=== PATIENT | female | born 1935 | race Caucasian/White ===

== ENCOUNTER → 2020-07-15 11:27 | Outpatient (BNVA) | payer MEDICARE, OTHER, SELFPAY | PROVIDERS: Family Provider Family Medicine; PCP Family Medicine; Visit Provider Nurse Practitioner Family | DX: S89.81XA Other specified injuries of right lower leg, initial encounter (principal); X58.XXXA Exposure to other specified factors, initial encounter | CPT/HCPCS: 73590 ==

== ENCOUNTER 2022-01-05 10:53 | Emergency (ER) | payer MEDICARE, OTHER, SELFPAY ==
[2022-01-05 10:58] VITALS: PULSE 66; RESP 16; TEMP 36.3; O2SAT 95; BMI 22.1
--- NOTE | 2022-01-05 11:24 | ED_ITS ---
HPI - Eye Problem General: Chief complaint: Eye Problems Stated complaint: Dark spots in vision, Weakness Time Seen by Provider: 01/05/22 11:04 Source: patient Mode of arrival: ambulatory History of Present Illness: 86-year-old female who comes into the emergency room complaining of blurry vision. She has had blurred spots in her vision this is been ongoing for many months. She has had extensive evaluation at various specialists in [place]. She is on aspirin and Xarelto. She is not having any symptoms no difficulty speech swallowing hearing no difficulty with gait. She came into the emergency room hoping to have more testing done. She is frustrated and wants to get more of a definitive answer. She has been scheduled to see a neurologist but that is not until February 12 and she wants to be seen sooner. Not having any eye pain she denies any vision symptoms at this time. chief complaint: vision change (Intermittent not present now) Onset (ago): month(s) Duration: intermittent Location: both eyes Eye Symptoms: blurry vision Mechanism: none Severity: mild Associated symptoms: Denies cough, fever(s), headache(s), nausea, neck pain, numbness, rhinorrhea, short of breath, vomiting or weakness Treatments Prior to Arrival: none Review of Systems Const: Denies: fever(s) ENMT: Denies: throat pain, ear or mastoid pain, nasal discharge or nasal congestion Card: Denies: chest pain, edema, dyspnea on exertion or orthopnea Resp: Denies: dyspnea, productive cough or non-productive cough GI: Denies: nausea or vomiting : Denies: flank pain, difficulty voiding, dysuria, urinary frequency or urinary urgency Musc: Denies: neck pain Skin/Breast: Denies: rash or pruritus Neuro: Denies: headache(s) [facility] ED PFS: Medical History (Updated 01/05/22 @ 11:35 by Ry Torres DO) CHF (congestive heart failure) Cholecystectomy planned CKD (chronic kidney disease) Diabetes type 2, controlled Gout Insomnia Surgical History S/P aortic valve replacement S/P hysterectomy S/P shoulder surgery BILATERAL Family History Mother Cancer Father Family history of premature coronary artery disease Hypertension Mother CAD (coronary artery disease) Hypertension Social History Smoking and tobacco status: never smoked Second hand smoke exposure: No Smoking risk assessment/counseling performed?: No Alcohol intake: never Desire information about alcohol rehabilitation?: No Counseling given: No Desire information about substance/drug rehabilitation?: No Counseling given: No Adopted: No Caregiver/support person: No Lives independently: Yes Housing: House Marital status: / Number of children: 3 Highest education level completed: Associate Degree: Academic Program service: No Current occupational status: retired Current occupation: retired Current occupational exposures/hazards: No Pets and animals: Yes Pets & animals: dog(s) and farm animals Farm Animals: cattle History of recent travel: No Leisure activites: other Sexually active: No Current gender identity: Female Physical Exam Const: COMMON NORMALS: no acute distress GENERAL APPEARANCE: cooperative and comfortable ORIENTATION/CONSCIOUSNESS: Yes awake, Yes oriented to person, Yes oriented to place and Yes oriented to time HENMT: COMMON NORMALS: normocephalic and atraumatic HEAD & SCALP: norm ocephalic and atraumatic Neuro: SENSORIUM/ORIENTATION: Yes oriented to person, Yes oriented to place and Yes oriented to time Skin: COMMON NORMALS: no rashes or lesions noted GENERAL SKIN EXAM: no rashes or lesions noted Course Vital Signs: Vital signs: Vital Signs Temperature 97.3 F L 01/05/22 10:58 Pulse Rate 66 01/05/22 10:58 Respiratory Rate 16 01/05/22 10:58 Pulse Oximetry 95 01/05/22 10:58 Oxygen Delivery Me thod 01/05/22 10:58 MDM - Eye Problem Medical Decision Making Patient is having no symptoms at all at this time. She just wanted to have more testing done. Discussed with her that what she likely needs is an MRI of the head. She would better be served first by seeing neurology and then getting more imaging if they felt it was indicated. We will try to get her set up to see Dr. West. Otherwise I do strongly recommend she keep the appointment she has she may be able to get in sooner with the referral that she had from [place] compared to trying to get into Dr. West's office. Return if she has sudden or acute changes in her symptoms. Lab Data Laboratory Results C-Reactive Protein 3.0 mg/L (0.0-4.9) 01/05/22 11:45 Discharge Plan Discharge Patient Disposition: Home Clinical Impression: Visual disturbance, Chronic anticoagulation, Diabetes type 2, controlled, CKD (chronic kidney disease) Condition: Stable Prescriptions: No Action colesevelam [WelChol] 625 mg tablet 1,875 mg PO BID carvedilol [Coreg] 6.25 mg tablet 12.5 mg PO BID furosemide [Lasix] 20 mg tablet 40 mg PO QAM Rx Instructions: DOSE UNKNOWN Januvia 25 mg tablet 25 mg PO DAILY Xarelto 20 mg tablet 20 mg PO DAILY Rx Instructions: must administer with evening meal spironolactone 25 mg tablet 25 mg PO DAILY allopurinol 100 mg tablet 100 mg PO DAILY aspirin [Adult Low Dose Aspirin] 81 mg tablet,delayed release (DR/EC) 81 mg PO DAILY benzonatate 200 mg capsule 200 mg PO TID cephalexin 500 mg capsule 500 mg PO Q8H ferrous sulfate 325 mg (65 mg iron) tablet 325 mg PO DAILY hydroxyzine HCl 25 mg tablet 25 mg PO QID PRN paroxetine HCl 10 mg tablet 10 mg PO DAILY pramipexole 0.5 mg tablet 1.5 mg PO .hs prednisone 20 mg tablet 40 mg PO DAILY 5 Days Qty: 10 0RF ipratropium bromide 21 mcg (0.03 %) spray,non-aerosol 2 spray intranasal BID Qty: 30 0RF Rx Instructions: administer into each nostril sulfacetamide sodium [Bleph-10] 10 % drops 1 drp ophthalmic (eye) Q4H Qty: 5 0RF Rx Instructions: left eye Discharge Orders: Discharge ED (Routine); Ordered 01/05/22 Ordered By: Ry Torres Referrals: Isaias Fowler DO [Primary Care Provider] - Discharge Diet: Advance as tolerated Discharge Activity: Resume usual activity Patient Instructions: Opioid Safety, Pain Management Activity Restrictions/Additional Instructions: Continue all of your current medications. Case management make arrangements for you to have follow-up with Dr. West. 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
--- NOTE | 2022-01-08 13:14 | DCPLANNER ---
Addendum entered by Kira Carpio 01/09/22 12:26: Patient had a follow up appointment with neurology - patient did attend appointment. Original Note: social service manager had message to schedule a follow up appointment for patient with neurology. social service manager sent patients information to the front office staff at neurology. Patients information will be printed and reviewed. Clinic will call patient with appointment information.
== END 2022-01-05 11:54 | disposition home or self-care (01) ==
PROVIDERS: Emergency Provider Family Medicine; PCP Family Medicine
DX: H53.8 Other visual disturbances (principal); E11.22 Type 2 diabetes mellitus with diabetic chronic kidney disease; N18.9 Chronic kidney disease, unspecified; I50.9 Heart failure, unspecified; Z79.82 Long term (current) use of aspirin; Z79.01 Long term (current) use of anticoagulants; Z79.84 Long term (current) use of oral hypoglycemic drugs; Z95.2 Presence of prosthetic heart valve
CPT/HCPCS: 86140; 99282

== ENCOUNTER → 2022-01-07 12:02 | Outpatient (BNVA) | payer MEDICARE, OTHER, SELFPAY | PROVIDERS: PCP Family Medicine; Visit Provider Specialist | DX: G45.3 Amaurosis fugax (principal); Z86.73 Personal history of transient ischemic attack (TIA), and cerebral infarction without residual deficits | CPT/HCPCS: 99204; 99205 ==

== ENCOUNTER 2022-01-22 12:29 | Outpatient (CLI) | payer MEDICARE, OTHER, SELFPAY ==
--- NOTE | 2022-01-22 13:00 | MR_ITS ---
WS: [id number] MRA HEAD TECHNIQUE: Axial 3-D TOF images obtained with axial images and axial, sagittal, and coronal 2-D refor matted images. CLINICAL INFORMATION: G45.9 - Transient cerebral ischemic attack, unspecified COMPARISON: None. FINDINGS: Mild intracranial atheromatous disease. Distal vertebral arteries are patent. Basilar artery is paten t. Normal vascularity to the SCHEDULING ANALYST territory bilaterally. Both ICAs are patent at the skull base. Thalia l vascularity to the SKYLER and MCA territories bilaterally. Moderate to severe short segment stenosis i n the anterior division M2 segment. No evidence of proximal flow-limiting stenosis or aneurysm. MR/MR angio head wo con [id number] IMPRESSION: 1. No proximal flow-limiting stenosis or aneurysm. 2. Mild intracranial atheromatous disease more prominent involving the posteri or cerebral arteries bilaterally. 3. Moderate to severe short segment stenosis in the anterior division M2 segme nt. 4. Otherwise unremarkable intracranial MRA.
--- NOTE | 2022-01-22 13:15 | MR_ITS ---
WS: [id number] MRI HEAD WITHOUT CONTRAST TECHNIQUE: Sagittal T1, T2 axial, T2 axial FLAIR, axial and coronal T1 images, axial susceptibility w eighted imaging, axial diffusion weighted images, and coronal T2 images were obtained. CLINICAL INFORMATION: G45.9 - Transient cerebral ischemic attack, unspecified COMPARISON: None. FINDINGS: No evidence of restricted diffusion to suggest acute ischemia. Ventricular system and basal cisterns are patent. Mild small vessel changes. Moderate parenchymal volume loss. Tiny chronic lacunar infarct s LEFT harris radiata and RIGHT caudate. Chronic lacunar infarcts in the LEFT greater than RIGHT cere bellum. Normal vascular flow voids at the skull base. No extra-axial fluid collections. No evidence o f mass or mass effect. Paranasal sinuses well aerated. Mild mucosal thickening LEFT mastoid air cells . RIGHT mastoid air cells well aerated. 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 No hemosiderin on the susceptibility weighted images. Normal optic chiasm and pituitary infundibulum. Mild symmetric atrophy temporal lobes and hippocampal formations. Normal optic chiasm and pituitary infundibulum. MR/MR head wo con* [id number] IMPRESSION: 1. No evidence of restricted diffusion to suggest acute ischemia. 2. Mild small vessel changes with moderate parenchymal volume loss. 3. Chronic lacunar infarcts in the LEFT harris radiata and LEFT greater than R IGHT cerebellum. 4. Mild mucosal thickening LEFT mastoid air cells. 5. 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
== END 2022-01-22 12:30 | disposition home or self-care (01) ==
LOC: RAD 12:29
PROVIDERS: PCP Family Medicine; Visit Provider Specialist
DX: G45.9 Transient cerebral ischemic attack, unspecified (principal); Z86.73 Personal history of transient ischemic attack (TIA), and cerebral infarction without residual deficits; G93.89 Other specified disorders of brain
CPT/HCPCS: 70544; 70551

== ENCOUNTER → 2022-04-02 10:37 | Outpatient (BNVA) | payer MEDICARE, OTHER, SELFPAY | PROVIDERS: Visit Provider Specialist | DX: G45.3 Amaurosis fugax (principal); I69.320 Aphasia following cerebral infarction | CPT/HCPCS: 99213 ==